=== PATIENT | female | born 1965 | race Caucasian/White ===

== ENCOUNTER 2022-08-26 18:31 | Emergency (ER) | payer OTHER ==
[2022-08-26 18:49] VITALS: BP 150/78; PULSE 92; RESP 20; TEMP 98.3; BMI 27.1
[2022-08-26] MEDS ORDERED: CEPHALEXIN MONOHYDRATE 500 MG CAPSULE (UD) PO ONE (20:22)
[2022-08-26] MEDS ORDERED: CEPHALEXIN MONOHYDRATE 500 MG CAPSULE (UD) ONE (20:25)
== END 2022-08-26 20:36 | disposition home or self-care (01) ==
LOC: JERFT 18:31
DX: L03.113 Cellulitis of right upper limb (principal)
CPT/HCPCS: 99283-25